=== PATIENT | female | born 1990 ===

== ENCOUNTER 2020-11-25 05:14 | Inpatient (IN) | payer MEDICAID ==
[2020-11-25] MEDS ORDERED: Oxytocin/0.9 % Sodium Chloride 30 UNIT/500 ML BAG IV SCH (05:45)
[2020-11-25] MEDS ORDERED: Citric Acid/Sodium Citrate Solution 30 ML Cup PO ONE (05:45)
[2020-11-25] MEDS ORDERED: ceFAZolin 2 GM in Premix Bag 1 BAG IV ONE (05:45)
[2020-11-25] MEDS: Lactated Ringers 1,000 ML IV SCH ×2 (06:11→07:09)
[2020-11-25] MEDS ORDERED: Phenylephrine 1% 10 MG/ML SDV ONE (07:11)
[2020-11-25] MEDS ORDERED: fentaNYL 100 MCG/2 ML SDV ONE (07:11)
[2020-11-25] MEDS ORDERED: Morphine PF 10 MG/10 ML SDV ONE (07:12)
[2020-11-25] MEDS ORDERED: Oxytocin 10 Units/1 ML SDV ONE (07:19)
[2020-11-25] MEDS ORDERED: Ondansetron 4 MG/2 ML SDV ONE (07:19)
[2020-11-25] MEDS ORDERED: Sodium Chloride 0.9% 20 ML ONE (07:29)
[2020-11-25] MEDS ORDERED: ceFAZolin 1 GM Vial ONE (07:29)
--- NOTE | 2020-11-25 07:57 | PCM.PREANE ---
Preanesthetic Assessment - Anesthesia/Transfusion/Family Hx Anesthesia History: Prior Anesthesia Without Reaction Family History of Anesthesia Reaction: No Transfusion History: Prior Transfusion Without Reaction - Review of Systems General: No Symptoms Pulmonary: No Symptoms Cardiovascular: No Symptoms Gastrointestinal: No Symptoms Neurological: No Symptoms Other: Reports: None - Physical Assessment Vital Signs: Last Vital Signs Temp 36.2 C 11/25/20 05:45 Pulse 81 11/25/20 05:45 Resp 17 11/25/20 05:45 BP 124/78 11/25/20 05:45 Pulse Ox 98 11/25/20 05:45 Height: 1.5 m Weight: 87.997 kg ASA Class: 2 Mental Status: Alert & Oriented x3 Dentition: Reports: Normal Dentition Lungs: Clear to Auscultation Cardiovascular: Regular Rate - Lab Values: Laboratory Last Values WBC 8.32 K/uL (4.0-11.0) 11/25/20 05:40 RBC 4.08 M/uL (4.30-5.90) L 11/25/20 05:40 Hgb 10.5 g/dL (12.0-16.0) L 11/25/20 05:40 Hct 32.8 % (36.0-46.0) L 11/25/20 05:40 MCV 80.4 fL (80.0-98.0) 11/25/20 05:40 MCH 25.7 pg (27.0-32.0) L 11/25/20 05:40 MCHC 32.0 g/dL (31.0-37.0) 11/25/20 05:40 RDW Std Deviation 40.5 fl (28.0-62.0) 11/25/20 05:40 RDW Coeff of John 14 % (11.0-15.0) 11/25/20 05:40 Plt Count 277 K/uL (150-400) 11/25/20 05:40 MPV 10.40 fL (7.40-12.00) 11/25/20 05:40 Blood Type A POSITIVE 11/25/20 05:40 Antibody Screen NEGATIVE 11/25/20 05:40 - Allergies Allergies/Adverse Reactions: Allergies Allergy/AdvReac Type Severity Reaction Status Date / Time amoxicillin Allergy Cannot Verified 11/19/20 10:04 Remember Penicillins Allergy Cannot Verified 11/19/20 10:04 Remember - Acknowledgements Anesthesia Type Planned: Spinal Pt an Appropriate Candidate for the Planned Anesthesia: Yes Alternatives and Risks of Anesthesia Discussed w Pt/Guardian: Yes Pt/Guardian Understands and Agrees with Anesthesia Plan: Yes PreAnesthesia Questionnaire HEENT History: Reports: Other (See Below) Other HEENT History: lower permanent dental retainer Cardiovascular History: Reports: Other (See Below) Other Cardiovascular History: murmur as an Respiratory History: Reports: None Gastrointestinal History: Reports: Other (See Below) Other Gastrointestinal History: occasional heartburn with Genitourinary History: Reports: None 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: , 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 Musculoskeletal History: Reports: None Neurological History: Reports: None Psychiatric History: Reports: None Endocrine/Metabolic History: Reports: Obesity/BMI 30+ Hematologic History: Reports: None Immunologic History: Reports: None Oncologic (Cancer) History: Reports: None Dermatologic History: Reports: None - Past Surgical History Head Surgeries/Procedures: Reports: None HEENT Surgical History: Reports: None Cardiovascular Surgical History: Reports: None Respiratory Surgical History: Reports: None GI Surgical History: Reports: None Female Surgical History: Reports: Section, D&C Endocrine Surgical History: Reports: None Neurological Surgical History: Reports: None Musculoskeletal Surgical History: Reports: None Oncologic Surgical History: Reports: None Dermatological Surgical History: Reports: None - SUBSTANCE USE Tobacco Use Status *Q: Never Tobacco User Tobacco Use Within Last Twelve Months: No Second Hand Smoke Exposure: No Recreational Drug Use History: No - HOME MEDS Home Medications: Home Meds Iron,Carbonyl [Iron Chews] 2 tab.chew CHEW DAILY 11/19/20 [History] Pnv No.95/Ferrous Fum/Folic AC [ Vitamin Tablet] 1 tab PO DAILY 11/19/20 [History] - CURRENT (IN HOUSE) MEDS Current Meds: Current Medications Oxytocin/Sodium Chloride (Oxytocin 30 Unit/500 Ml-Ns) 30 unit in 500 mls @ 250 mls/hr IV TITRATE TEREZA Lactated Ringer's (Ringers, Lactated) 1,000 mls @ 500 mls/hr IV BOLUS TEREZA Last Admin: 11/25/20 07:09 Dose: 500 mls/hr Documented by: Discontinued Medications Cefazolin Sodium (Cefazolin 1 Gm Vial) Confirm Administered Dose 2 gm .ROUTE .STK-MED ONE Stop: 11/25/20 07:30 Citric Acid/Sodium Citrate (Citric Acid/Sodium Citrate Solution 30 Ml Cup) 30 ml PO ONETIME ONE Stop: 11/25/20 05:46 Fentanyl (Fentanyl 100 Mcg/2 Ml Sdv) Confirm Administered Dose 100 mcg .ROUTE .STK-MED ONE Stop: 11/25/20 07:12 Cefazolin Sodium/Dextrose 2 gm (/ Premix) 50 mls @ 100 mls/hr IV ONETIME ONE Stop: 11/25/20 06:14 Sodium Chloride (Normal Saline) Confirm Administered Dose 20 mls @ as directed .ROUTE .STK-MED ONE Stop: 11/25/20 07:30 Morphine Sulfate (Morphine Pf 10 Mg/10 Ml Sdv) Confirm Administered Dose 10 mg .ROUTE .STK-MED ONE Stop: 11/25/20 07:13 Ondansetron HCl (Ondansetron 4 Mg/2 Ml Sdv) Confirm Administered Dose 4 mg .ROUTE .STK-MED ONE Stop: 11/25/20 07:20 Oxytocin (Oxytocin 10 Units/1 Ml Sdv) Confirm Administered Dose 20 unit .ROUTE .STK-MED ONE Stop: 11/25/20 07:20 Phenylephrine HCl (Phenylephrine 1% 10 Mg/Ml Sdv) Confirm Administered Dose 10 mg .ROUTE .STK-MED ONE Stop: 11/25/20 07:12
[2020-11-25] MEDS ORDERED: diphenhydrAMINE 50 MG/ML SDV IVPUSH PRN ×2 (09:13→09:50)
[2020-11-25] MEDS ORDERED: Naloxone 0.4 MG/ML Syringe IVPUSH ONE (09:13)
[2020-11-25] MEDS ORDERED: Nalbuphine 10 MG/1 ML Vial IVPUSH PRN (09:13)
[2020-11-25] MEDS ORDERED: Naloxone 0.4 MG/ML Syringe IVPUSH PRN (09:13)
[2020-11-25] MEDS ORDERED: Ondansetron 4 MG/2 ML SDV IVPUSH ONE (09:13)
[2020-11-25] MEDS ORDERED: Tranexamic Acid 1,000 MG in Sodium Chloride 0.9% 100 ML IV PRN (09:50)
[2020-11-25] MEDS ORDERED: Lanolin 100% Cream 7 GM Tube TOP PRN (09:50)
[2020-11-25] MEDS ORDERED: Methylergonovine 0.2 MG/1 ML Amp IM PRN (09:50)
[2020-11-25] MEDS ORDERED: Ibuprofen 800 MG Tab PO PRN (09:50)
[2020-11-25] MEDS ORDERED: Oxytocin 10 Units/1 ML SDV IM PRN (09:50)
[2020-11-25] MEDS ORDERED: Bisacodyl 10 MG Supp RECTAL PRN (09:50)
[2020-11-25] MEDS ORDERED: Misoprostol 200 MCG Tab RECTAL PRN (09:50)
[2020-11-25] MEDS ORDERED: Measles, Mumps & Rubella Vaccine 0.5 ML SDV SUBCUT ONE (09:50)
[2020-11-25] MEDS ORDERED: Ondansetron 4 MG/2 ML SDV IVPUSH PRN (09:50)
[2020-11-25] MEDS ORDERED: Acetaminophen/oxyCODONE 325-5 MG Tab PO PRN (09:50)
[2020-11-25] MEDS ORDERED: Lactated Ringers 1,000 ML IV SCH (10:00)
[2020-11-25] MEDS: Ketorolac 30 MG/ML SDV IVPUSH SCH ×3 (10:11→22:47)
[2020-11-25] MEDS ORDERED: fentaNYL 50 MCG/ML SDV IVPUSH ONE (10:14)
[2020-11-25] MEDS ORDERED: fentaNYL 100 MCG/2 ML SDV IVPUSH ONE (10:30)
--- NOTE | 2020-11-25 10:42 | PCM.POSTAN ---
POST ANESTHESIA ASSESSMENT - MENTAL STATUS Mental Status: Alert, Oriented - VITAL SIGNS Vital Signs: Last Vital Signs Temp 36.2 C 11/25/20 05:45 Pulse 81 11/25/20 05:45 Resp 17 11/25/20 05:45 BP 124/78 11/25/20 05:45 Pulse Ox 98 11/25/20 05:45 - RESPIRATORY Respiratory Status: Respiratory Rate WNL, Airway Patent, O2 Saturation Stable - CARDIOVASCULAR CV Status: Pulse Rate WNL, Blood Pressure Stable - GASTROINTESTINAL GI Status: No Symptoms - POST OP HYDRATION Hydration Status: Adequate & Stable
--- NOTE | 2020-11-25 15:10 | OR ---
SURGEON: Andres Dewitt MD DATE OF PROCEDURE: 11/25/2020 INDICATION FOR PROCEDURE: A 30-year-old, G5, P-0-0-1-2 at 39 weeks and 2 days, presenting for a scheduled repeat . The patient had a history of 2 previous C-sections and declined trial of labor after section. The patient had an uncomplicated , is GBS negative. Fetus measured 93rd percentile on ultrasound. PREOPERATIVE DIAGNOSIS: Crane intrauterine at 39 weeks and 2 days. POSTOPERATIVE DIAGNOSIS: Crane intrauterine at 39 weeks and 2 days. PROCEDURE PERFORMED: Repeat low-transverse section. ANESTHESIA: Spinal. ANESTHESIOLOGIST: Dr. Kenton Morales. FINDINGS: A viable male infant. scores of 8 and 9. Weight of 9lb 8oz g. Nuchal cord x1 was reduced after delivery. Normal-appearing uterus, lower uterine segment was thin. A small amount of omental adhesions to the rectus muscle. Estimated Blood Loss: 900cc DESCRIPTION OF PROCEDURE: The procedure was discussed with the patient. Risks and complications including bleeding, infection, DVTs, injury to surrounding organs including bladder, bowel, ureters were discussed. The patient expressed understanding. Consent was signed. The patient was brought to the operating room. Spinal anesthesia was performed. The Plata catheter was placed. The abdomen was prepped with chlorhexidine in sterile fashion and draped and tested for anesthesia, spinal was adequate. Pfannenstiel incision was made at the site of the previous incision with the scalpel and dissected down to fascia. The sites of bleeding were cauterized. The fascia was carefully cleared of subcutaneous tissue and incised in the midline. It was extended laterally with curved Bhandari scissors. Nieves clamps were placed on the superior fascial edge. The rectus muscles were adhered to the fascia and were carefully dissected using blunt dissection and Bhandari scissors. The same process was repeated for the inferior edge. The peritoneum was identified, entered bluntly, and carefully dissected with Metzenbaum scissors, careful to avoid the bowel and bladder. It was then extended bluntly. Bladder flap was made by gentle dissection of the vesicouterine peritoneum and pushing the bladder away from the site of the incision. The uterus was incised using a scalpel transversely at the lower uterine segment and extended bluntly. Clear amniotic fluid was noted. The 's head was brought to the hysterotomy and delivered with fundal pressure atraumatically. The shoulder and body were delivered without difficulty. Nuchal cord x1 was reduced after delivery. The nose and mouth were suctioned. The umbilical cord was clamped and cut after 60 seconds and no longer pulsating. The baby was pink and crying immediately, moving all extremities. The baby was handed over to awaiting nursery staff. Cord gases were obtained. The placenta did not separate easily from the endometrial cavity, it was removed manually and the remaining membranes were carefully removed from the uterus with clean laps and ring forceps. Allis clamps were used to grasp the angles and lower edges of the incision. The uterine incision was closed in a single layer in running nonlocking fashion using 0 Vicryl. The paracolic gutters were cleaned of any clots and the incision was found to be hemostatic. The incision was irrigated with copious fluid and hemostasis was again confirmed. The peritoneum was grasped by hemostats and brought together in the midline. It was closed using 2- 0 Vicryl in running fashion. The rectus muscles were reapproximated with 3 mattress stitches. The rectus muscle was carefully examined and noted to be hemostatic. The subcutaneous tissue was irrigated and bleeding areas cauterized. The subcutaneous layer was reapproximated using 2-0 plain suture in running fashion. The skin was closed in subcuticular fashion using 3- 0 Monocryl on a Brina needle. ABD pressure dressing was placed over the incision. The patient was stable and transferred to recovery room. WOLF STEWARD /[id number] GRANT
[2020-11-25] MEDS: Docusate Sodium 100 MG Cap PO SCH (21:28)
[2020-11-26] MEDS: Ketorolac 30 MG/ML SDV IVPUSH SCH ×2 (04:28→10:16)
[2020-11-26] MEDS: Docusate Sodium 100 MG Cap PO SCH ×2 (08:08→20:39)
[2020-11-26] MEDS: Acetaminophen/oxyCODONE 325-5 MG Tab PO PRN ×2 (11:10→16:05)
--- NOTE | 2020-11-26 11:57 | PCM.PNPP ---
- General Info Date of Service: 11/26/20 Functional Status: Reports: Pain Controlled, Tolerating Diet, Ambulating, Urinating - Review of Systems General: Reports: No Symptoms HEENT: Reports: No Symptoms Pulmonary: Reports: No Symptoms Cardiovascular: Reports: No Symptoms Gastrointestinal: Reports: No Symptoms Genitourinary: Reports: No Symptoms Musculoskeletal: Reports: No Symptoms Skin: Reports: No Symptoms Neurological: Reports: No Symptoms Psychiatric: Reports: No Symptoms - Patient Data Vital Signs - Most Recent: Last Vital Signs Temp 36.1 C 11/26/20 09:00 Pulse 82 11/26/20 09:00 Resp 16 11/26/20 09:00 BP 123/73 11/26/20 09:00 Pulse Ox 97 11/26/20 09:00 Weight - Most Recent: 194 lb I&O - Last 24 Hours: Intake & Output 11/25/20 11/26/20 11/26/20 22:59 06:59 14:59 Intake Total 800 900 Output Total 825 1600 Balance -25 -700 Lab Results - Last 24 Hours: Laboratory Results - last 24 hr 11/26/20 Range/Units 05:22 Hgb 9.1 L (12.0-16.0) g/dL Hct 28.4 L (36.0-46.0) % Med Orders - Current: Current Medications Bisacodyl (Bisacodyl 10 Mg Supp) 10 mg RECTAL ONETIME PRN PRN Reason: Constipation Diphenhydramine HCl (Diphenhydramine 50 Mg/Ml Sdv) 25 mg IVPUSH Q4H PRN PRN Reason: Itching Stop: 11/26/20 09:19 Diphenhydramine HCl (Diphenhydramine 50 Mg/Ml Sdv) 25 mg IVPUSH Q6H PRN PRN Reason: Itching or Nausea Last Admin: 11/25/20 21:28 Dose: 25 mg Documented by: Docusate Sodium (Docusate Sodium 100 Mg Cap) 100 mg PO BID TEREZA Last Admin: 11/26/20 08:08 Dose: 100 mg Documented by: Emollient Ointment (Lanolin 100% Cream 7 Gm Tube) 0 gm TOP ASDIRECTED PRN PRN Reason: Sore Nipples Oxytocin/Sodium Chloride (Oxytocin 30 Unit/500 Ml-Ns) 30 unit in 500 mls @ 250 mls/hr IV TITRATE [facility] Lactated Ringer's (Ringers, Lactated) 1,000 mls @ 500 mls/hr IV BOLUS [facility] Last Admin: 11/25/20 07:09 Dose: 500 mls/hr Documented by: Lactated Ringer's (Ringers, Lactated) 1,000 mls @ 125 mls/hr IV ASDIRECTED [facility] Tranexamic Acid 1,000 mg/ (Sodium Chloride) 110 mls @ 660 mls/hr IV ONETIME PRN PRN Reason: Bleeding Ibuprofen (Ibuprofen 800 Mg Tab) 800 mg PO Q8H PRN PRN Reason: mild pain or fever Ketorolac Tromethamine (Ketorolac 30 Mg/Ml Sdv) 30 mg IVPUSH Q6H [facility] Stop: 11/26/20 10:01 Last Admin: 11/26/20 10:16 Dose: 30 mg Documented by: Methylergonovine Maleate (Methylergonovine 0.2 Mg/1 Ml Amp) 0.2 mg IM ONETIME PRN PRN Reason: Excessive Vaginal Bleeding Misoprostol (Misoprostol 200 Mcg Tab) 1,000 mcg RECTAL ONETIME PRN PRN Reason: excessive bleeding Nalbuphine HCl (Nalbuphine 10 Mg/1 Ml Vial) 5 mg IVPUSH Q3H PRN PRN Reason: Pruritis Stop: 11/26/20 09:18 Last Admin: 11/25/20 10:08 Dose: 5 mg Documented by: Naloxone HCl (Naloxone 0.4 Mg/Ml Syringe) 0.1 mg IVPUSH ONETIME PRN PRN Reason: Respiratory Depression Stop: 11/26/20 09:19 Ondansetron HCl (Ondansetron 4 Mg/2 Ml Sdv) 4 mg IVPUSH Q4H PRN PRN Reason: Nausea/Vomiting Oxycodone/Acetaminophen (Acetaminophen/Oxycodone 325-5 Mg Tab) 1 tab PO Q4H PRN PRN Reason: Pain (moderate 4-6) Last Admin: 11/26/20 11:10 Dose: 1 tab Documented by: Oxycodone/Acetaminophen (Acetaminophen/Oxycodone 325-5 Mg Tab) 2 tab PO Q4H PRN PRN Reason: Pain (moderate 4-6) Oxytocin (Oxytocin 10 Units/1 Ml Sdv) 10 unit IM ASDIRECTED PRN PRN Reason: Excessive Vaginal Bleeding Discontinued Medications Cefazolin Sodium (Cefazolin 1 Gm Vial) Confirm Administered Dose 2 gm .ROUTE .STK-MED ONE Stop: 11/25/20 07:30 Citric Acid/Sodium Citrate (Citric Acid/Sodium Citrate Solution 30 Ml Cup) 30 ml PO ONETIME ONE Stop: 11/25/20 05:46 Fentanyl (Fentanyl 100 Mcg/2 Ml Sdv) Confirm Administered Dose 100 mcg .ROUTE .STK-MED ONE Stop: 11/25/20 07:12 Fentanyl (Fentanyl 50 Mcg/Ml Sdv) 50 mcg IVPUSH ONETIME ONE Stop: 11/25/20 10:15 Fentanyl (Fentanyl 100 Mcg/2 Ml Sdv) 50 mcg IVPUSH ONETIME ONE Stop: 11/25/20 10:31 Last Admin: 11/25/20 10:50 Dose: 50 mcg Documented by: Cefazolin Sodium/Dextrose 2 gm (/ Premix) 50 mls @ 100 mls/hr IV ONETIME ONE Stop: 11/25/20 06:14 Sodium Chloride (Normal Saline) Confirm Administered Dose 20 mls @ as directed .ROUTE .STK-MED ONE Stop: 11/25/20 07:30 Measles/Mumps/Rubella Vaccine Live (Measles, Mumps & Rubella Vaccine 0.5 Ml Sdv) 0.5 ml SUBCUT .ONCE ONE Stop: 11/25/20 09:51 Morphine Sulfate (Morphine Pf 10 Mg/10 Ml Sdv) Confirm Administered Dose 10 mg .ROUTE .STK-MED ONE Stop: 11/25/20 07:13 Naloxone HCl (Naloxone 0.4 Mg/Ml Syringe) 0.1 mg IVPUSH ONETIME ONE Stop: 11/25/20 09:14 Ondansetron HCl (Ondansetron 4 Mg/2 Ml Sdv) Confirm Administered Dose 4 mg .ROUTE .STK-MED ONE Stop: 11/25/20 07:20 Ondansetron HCl (Ondansetron 4 Mg/2 Ml Sdv) 4 mg IVPUSH ONETIME ONE Stop: 11/25/20 09:14 Oxytocin (Oxytocin 10 Units/1 Ml Sdv) Confirm Administered Dose 20 unit .ROUTE .STK-MED ONE Stop: 11/25/20 07:20 Phenylephrine HCl (Phenylephrine 1% 10 Mg/Ml Sdv) Confirm Administered Dose 10 mg .ROUTE .STK-MED ONE Stop: 11/25/20 07:12 - Interaction Infant Disposition, : Adams at Bedside Support Person: Significant Other - Recovery Exam Fundal Tone: Firm Fundal Level: At Umbilicus Fundal Placement: Midline Lochia Amount: Scant Lochia Color: Rubra/Red Perineum Description: Intact, Minimal Bruising/Swelling Episiotomy/Laceration: None - Exam General: Alert, Oriented, Cooperative, No Acute Distress HEENT: Pupils Equal, Pupils Reactive Neck: Supple, Trachea Midline, No JVD Lungs: Normal Respiratory Effort GI/Abdominal Exam: Normal Bowel Sounds, Soft, Non-Tender, No Organomegaly, No Distention Extremities: Normal Inspection, Normal Range of Motion, Non-Tender, No Pedal Edema Skin: Warm, Dry, Intact Wound/Incisions: Healing Well Neurological: No New Focal Deficit Psy/Mental Status: Alert, Normal Affect, Normal Mood - Problem List Review Problem List Initiated/Reviewed/Updated: Yes - My Orders Last 24 Hours: My Active Orders 11/25/20 Lunch Regular Diet [DIET] 11/25/20 21:00 Docusate Sodium [Colace] 100 mg PO BID 11/26/20 16:00 Ibuprofen [Motrin] 800 mg PO Q8H PRN - Assessment Assessment:: 30yo at POD1 s/p repeat , stable and recovering well. - Plan Plan:: - vital stable - Hgb 9.5, bleeding light, denies s/s of anemia, will start iron - had good UO, voiding without difficulty - pain controlled - desires circumcision Plan for discharge home tomorrow
[2020-11-26] MEDS: Ibuprofen 800 MG Tab PO PRN (18:30)
[2020-11-27] MEDS: Ibuprofen 800 MG Tab PO PRN ×2 (03:48→11:38)
[2020-11-27] MEDS: Acetaminophen/oxyCODONE 325-5 MG Tab PO PRN ×2 (04:58→09:31)
[2020-11-27] MEDS: Docusate Sodium 100 MG Cap PO SCH (08:14)
--- NOTE | 2020-11-27 08:21 | PCM.PN ---
- General Info Date of Service: 11/27/20 Functional Status: Reports: Pain Controlled, Tolerating Diet, Ambulating, Urinating, Other (Passed flatus and had BM.) - Review of Systems General: Reports: No Symptoms HEENT: Reports: No Symptoms Pulmonary: Reports: No Symptoms Cardiovascular: Reports: No Symptoms Gastrointestinal: Reports: No Symptoms Genitourinary: Reports: No Symptoms Musculoskeletal: Reports: No Symptoms Skin: Reports: No Symptoms Neurological: Reports: No Symptoms Psychiatric: Reports: No Symptoms - Patient Data Vitals - Most Recent: Last Vital Signs Temp 36.0 C L 11/26/20 20:28 Pulse 79 11/27/20 04:00 Resp 16 11/27/20 04:00 BP 127/73 11/27/20 04:00 Pulse Ox 97 11/27/20 00:00 Weight - Most Recent: 194 lb Med Orders - Current: Current Medications Bisacodyl (Bisacodyl 10 Mg Supp) 10 mg RECTAL ONETIME PRN PRN Reason: Constipation Diphenhydramine HCl (Diphenhydramine 50 Mg/Ml Sdv) 25 mg IVPUSH Q4H PRN PRN Reason: Itching Stop: 11/26/20 09:19 Diphenhydramine HCl (Diphenhydramine 50 Mg/Ml Sdv) 25 mg IVPUSH Q6H PRN PRN Reason: Itching or Nausea Last Admin: 11/25/20 21:28 Dose: 25 mg Documented by: Docusate Sodium (Docusate Sodium 100 Mg Cap) 100 mg PO BID TEREZA Last Admin: 11/27/20 08:14 Dose: 100 mg Documented by: Emollient Ointment (Lanolin 100% Cream 7 Gm Tube) 0 gm TOP ASDIRECTED PRN PRN Reason: Sore Nipples Last Admin: 11/26/20 18:30 Dose: 1 gm Documented by: Oxytocin/Sodium Chloride (Oxytocin 30 Unit/500 Ml-Ns) 30 unit in 500 mls @ 250 mls/hr IV TITRATE [facility]ERE[facility] Lactated Ringer's (Ringers, Lactated) 1,000 mls @ 500 mls/hr IV BOLUS [facility] Last Admin: 11/25/20 07:09 Dose: 500 mls/hr Documented by: Lactated Ringer's (Ringers, Lactated) 1,000 mls @ 125 mls/hr IV ASDIRECTED [facility] Tranexamic Acid 1,000 mg/ (Sodium Chloride) 110 mls @ 660 mls/hr IV ONETIME PRN PRN Reason: Bleeding Ibuprofen (Ibuprofen 800 Mg Tab) 800 mg PO Q8H PRN PRN Reason: mild pain or fever Last Admin: 11/27/20 03:48 Dose: 800 mg Documented by: Ketorolac Tromethamine (Ketorolac 30 Mg/Ml Sdv) 30 mg IVPUSH Q6H [facility] Stop: 11/26/20 10:01 Last Admin: 11/26/20 10:16 Dose: 30 mg Documented by: Methylergonovine Maleate (Methylergonovine 0.2 Mg/1 Ml Amp) 0.2 mg IM ONETIME PRN PRN Reason: Excessive Vaginal Bleeding Misoprostol (Misoprostol 200 Mcg Tab) 1,000 mcg RECTAL ONETIME PRN PRN Reason: excessive bleeding Nalbuphine HCl (Nalbuphine 10 Mg/1 Ml Vial) 5 mg IVPUSH Q3H PRN PRN Reason: Pruritis Stop: 11/26/20 09:18 Last Admin: 11/25/20 10:08 Dose: 5 mg Documented by: Naloxone HCl (Naloxone 0.4 Mg/Ml Syringe) 0.1 mg IVPUSH ONETIME PRN PRN Reason: Respiratory Depression Stop: 11/26/20 09:19 Ondansetron HCl (Ondansetron 4 Mg/2 Ml Sdv) 4 mg IVPUSH Q4H PRN PRN Reason: Nausea/Vomiting Oxycodone/Acetaminophen (Acetaminophen/Oxycodone 325-5 Mg Tab) 1 tab PO Q4H PRN PRN Reason: Pain (moderate 4-6) Last Admin: 11/27/20 04:58 Dose: 1 tab Documented by: Oxycodone/Acetaminophen (Acetaminophen/Oxycodone 325-5 Mg Tab) 2 tab PO Q4H PRN PRN Reason: Pain (moderate 4-6) Last Admin: 11/26/20 20:38 Dose: 2 tab Documented by: Oxytocin (Oxytocin 10 Units/1 Ml Sdv) 10 unit IM ASDIRECTED PRN PRN Reason: Excessive Vaginal Bleeding Discontinued Medications Cefazolin Sodium (Cefazolin 1 Gm Vial) Confirm Administered Dose 2 gm .ROUTE .STK-MED ONE Stop: 11/25/20 07:30 Citric Acid/Sodium Citrate (Citric Acid/Sodium Citrate Solution 30 Ml Cup) 30 ml PO ONETIME ONE Stop: 11/25/20 05:46 Fentanyl (Fentanyl 100 Mcg/2 Ml Sdv) Confirm Administered Dose 100 mcg .ROUTE .STK-MED ONE Stop: 11/25/20 07:12 Fentanyl (Fentanyl 50 Mcg/Ml Sdv) 50 mcg IVPUSH ONETIME ONE Stop: 11/25/20 10:15 Fentanyl (Fentanyl 100 Mcg/2 Ml Sdv) 50 mcg IVPUSH ONETIME ONE Stop: 11/25/20 10:31 Last Admin: 11/25/20 10:50 Dose: 50 mcg Documented by: Cefazolin Sodium/Dextrose 2 gm (/ Premix) 50 mls @ 100 mls/hr IV ONETIME ONE Stop: 11/25/20 06:14 Sodium Chloride (Normal Saline) Confirm Administered Dose 20 mls @ as directed .ROUTE .STK-MED ONE Stop: 11/25/20 07:30 Measles/Mumps/Rubella Vaccine Live (Measles, Mumps & Rubella Vaccine 0.5 Ml Sdv) 0.5 ml SUBCUT .ONCE ONE Stop: 11/25/20 09:51 Morphine Sulfate (Morphine Pf 10 Mg/10 Ml Sdv) Confirm Administered Dose 10 mg .ROUTE .STK-MED ONE Stop: 11/25/20 07:13 Naloxone HCl (Naloxone 0.4 Mg/Ml Syringe) 0.1 mg IVPUSH ONETIME ONE Stop: 11/25/20 09:14 Ondansetron HCl (Ondansetron 4 Mg/2 Ml Sdv) Confirm Administered Dose 4 mg .ROUTE .STK-MED ONE Stop: 11/25/20 07:20 Ondansetron HCl (Ondansetron 4 Mg/2 Ml Sdv) 4 mg IVPUSH ONETIME ONE Stop: 11/25/20 09:14 Oxytocin (Oxytocin 10 Units/1 Ml Sdv) Confirm Administered Dose 20 unit .ROUTE .STK-MED ONE Stop: 11/25/20 07:20 Phenylephrine HCl (Phenylephrine 1% 10 Mg/Ml Sdv) Confirm Administered Dose 10 mg .ROUTE .STK-MED ONE Stop: 11/25/20 07:12 - Exam General: Alert, Oriented, Cooperative, No Acute Distress HEENT: Pupils Equal, Pupils Reactive Neck: Supple, Trachea Midline Lungs: Normal Respiratory Effort GI/Abdominal Exam: Soft, Non-Tender, No Distention Back Exam: Normal Inspection, Full Range of Motion Extremities: Normal Inspection, Normal Range of Motion, Non-Tender, No Pedal Edema Skin: Warm, Dry, Intact Wound/Incisions: Healing Well Neurological: No New Focal Deficit Psy/Mental Status: Alert, Normal Affect, Normal Mood - Patient Data Result Diagrams: 11/26/20 05:22 Sepsis Event Note - Evaluation Sepsis Screening Result: No Definite Risk - Focused Exam Vital Signs: Vital Signs Temp Pulse Resp BP Pulse Ox 11/27/20 04:00 79 16 127/73 11/27/20 00:00 73 18 122/66 97 11/26/20 20:28 36.0 C L 80 18 125/69 97 - Problem List Review Problem List Initiated/Reviewed/Updated: Yes - My Orders Last 24 Hours: My Active Orders 11/26/20 16:00 Ibuprofen [Motrin] 800 mg PO Q8H PRN 11/27/20 08:16 Ready for Discharge [RC] PER UNIT ROUTINE - Assessment Assessment:: 30yo at POD2 s/p repeat , stable and recovering well. - Plan Plan:: - vital stable - Hgb 9.1, bleeding light, denies s/s of anemia, will start iron - pain controlled Plan for discharge home today, reviewed care instructions
== END 2020-11-27 12:55 | disposition home or self-care (01) | DRG 788 ==
LOC: MW.OB 05:14
PROVIDERS: ADMIT Obstetrics & Gynecology; ATTEND Obstetrics & Gynecology
PROC: 10D00Z1 Extraction of Products of Conception, Low, Open Approach (ICD-10-PCS; principal; 2020-11-25)
DX: O34.211 Maternal care for low transverse scar from previous cesarean delivery (principal); Z3A.39 39 weeks gestation of pregnancy; Z37.0 Single live birth; O69.81X0 Labor and delivery complicated by cord around neck, without compression, not applicable or unspecified
CPT/HCPCS: 36415; 59025; 85014; 85018; 85027; 86592; 86850; 86900; 86901; 88307; A9270-GY; J0690; J1200; J1885; J2270; J2300; J2370; J2405; J2590; J3010; J7120